=== PATIENT | female | born 1950 | race African-American/Black ===

== ENCOUNTER 2016-10-27 13:57 | Emergency (ER) | payer BC, OTHER ==
[~2016-10-27] VITALS: Ht 160 cm; Wt 90.8 kg
[~2016-10-27 13:57] MED LIST: ASPIRIN81 M1 PO; ATENOLOL25 MG PO; DESOXIMETASONE15 G1 TP; SYNTHROID100 MCG PO; TRIAMTERENE-HC1 EACH PO; VENTOLIN HFA18 GM IH; VOLTAREN75 MG PO; WOMEN'S DAILY1 EAC1 PO
[2016-10-27 17:25] LABS: MCH 31.3 PG (29.0-34.0); MCHC 33.5 G/DL (30.0-36.0); MCV 93.4 FL (83-99); MEAN PLAT.VOLUME 9.2 uM^3 (9.5-12.4); PLATELET COUNT 384 K/uL (156-360); RBC DIS.WIDTH-CV 13.1 % (11.8-14.6); RED BLOOD COUNT 3.96 M/uL (3.80-5.20); WHITE BLOOD COUNT 4.5 K/uL (4.1-10.2)
[2016-10-27 17:34] LABS: CHLORIDE 103 mEq/L (99-109); POTASSIUM 4.2 mEq/L (3.7-5.4); SODIUM 138 mEq/L (136-147)
[2016-10-27 17:36] LABS: GLUCOSE 95 mg/dL (70-99)
[2016-10-27 17:37] LABS: ANION GAP 9 MEQ/L (2-14)
[2016-10-27 17:40] LABS: GFR ESTIMATE (CALCULATED) > 59 mL/min/
[2016-10-27 17:41] LABS: UREA NITROGEN (BUN) 15 mg/dL (9-23)
[2016-10-27 17:45] LABS: TROP-I INTERPRETATION NEGATIVE; TROPONIN-I < 0.01 ng/mL (0.0-0.30)
[2016-10-27 18:33] VITALS: BP 165/82
== END 2016-10-27 18:35 | disposition home or self-care (01) ==
LOC: EME 13:57 → RME 14:37
PROVIDERS: Physician Assistant
DX: M62.81 Muscle weakness (generalized) (principal); I10 Essential (primary) hypertension; D64.9 Anemia, unspecified; E05.00 Thyrotoxicosis with diffuse goiter without thyrotoxic crisis or storm; J45.909 Unspecified asthma, uncomplicated; Z79.82 Long term (current) use of aspirin
CPT/HCPCS: 70450; 71020; 80048; 84443; 84484; 85027; 93005; 99281; 99284